=== PATIENT | male | born 1945 | race Caucasian/White ===

== ENCOUNTER 2018-02-24 20:38 | Observation (INO) | payer MEDICARE ==
[2018-02-24] MEDS ORDERED: DiphenhydrAMINE 50 mg/ml Inj ONE (21:31)
--- NOTE | 2018-02-24 21:54 | C.PDOC ---
History Of Present Illness 72 y/o male presents to ED for complaints of lip swelling associated with right cheek swelling that began this afternoon. Denies SOB, throat pain or swelling, trauma, or any other physical complaints. Patient started taking hiwot inhibitor one week ago. Chief Complaint (Nursing): Allergic Reaction History Per: Patient History/Exam Limitations: no limitations Onset/Duration Of Symptoms: Hrs Current Symptoms Are (Timing): Still Present Recent travel outside of the [place]: No Past Medical History Reviewed: Historical Data, Nursing Documentation, Vital Signs Vital Signs: Last Vital Signs Temp 98.9 F 02/24/18 21:08 Pulse 74 02/25/18 00:47 Resp 16 02/25/18 00:47 BP 133/79 02/25/18 00:47 Pulse Ox 98 02/25/18 00:47 - Medical History PMH: Asthma, HTN Surgical History: No Surg Hx Family History: States: No Known Family Hx - Social History Hx Alcohol Use: Yes Hx Substance Use: No - Immunization History Hx Influenza Vaccination: Yes Hx Pneumococcal Vaccination: Yes Review Of Systems Constitutional: Negative for: Fever, Chills, Sweats ENT: Positive for: Other (Lip and right cheek swelling). Negative for: Throat Pain, Throat Swelling Cardiovascular: Negative for: Chest Pain Respiratory: Negative for: Shortness of Breath Gastrointestinal: Negative for: Nausea, Vomiting, Abdominal Pain, Diarrhea Skin: Negative for: Rash Neurological: Negative for: Weakness, Numbness Physical Exam - Physical Exam Appears: Well, Non-toxic, No Acute Distress Skin: Warm, Dry, No Ecchymosis, Other (Right cheek swelling ) Head: Atraumatic, Normacephalic Eye(s): bilateral: Normal Inspection, PERRL, EOMI Nose: Normal, No Discharge Oral Mucosa: Moist Tongue: Normal Appearing, No Swelling Lips: Swelling (Bilateral lips mostly on the right sided area. ) Throat: Normal, No Erythema, No Exudate, No Drooling Neck: Supple Chest: Symmetrical, No Tenderness Cardiovascular: Rhythm Regular, No Murmur Respiratory: Normal Breath Sounds, No Decreased Breath Sounds, No Rales, No Rhonchi, No Wheezing Gastrointestinal/Abdominal: Soft, No Tenderness Extremity: Normal ROM, No Deformity Extremity: Bilateral: Atraumatic, Normal Color And Temperature, Normal ROM Neurological/Psych: Oriented x3 (Awake and alert), Normal Speech (Speeaking in full sentences ), Other (No focal deficits ) Gait: Steady ED Course And Treatment - Laboratory Results Result Diagrams: 02/25/18 00:24 02/25/18 00:24 O2 Sat by Pulse Oximetry: 94 (RA) Pulse Ox Interpretation: Normal Medical Decision Making Medical Decision Making: Administered pepcid, benadryl, and SOLU-Medrol. Re-Evaluation: - Lip swelling noted - No throat swelling - Patient will be under observation Disposition Discussed With : Mela Montague Doctor Will See Patient In The: Hospital Counseled Patient/Family Regarding: Diagnosis - Disposition Disposition: HOSPITALIZED Disposition Time: 00:25 Condition: STABLE Forms: [facility] (Colombian) - POA Present On Arrival: None - Clinical Impression Clinical Impression: Angioedema - Scribe Statement The provider has reviewed the documentation as recorded by the Rafiibwilfredo Masters All medical record entries made by the Scribwilfredo were at my direction and personally dictated by me. I have reviewed the chart and agree that the record accurately reflects my personal performance of the history, physical exam, medical decision making, and the department course for this patient. I have also personally directed, reviewed, and agree with the discharge instructions and disposition.
[2018-02-24] MEDS ORDERED: DiphenhydrAMINE 50 mg/ml Inj IVP STA (21:59)
[2018-02-24] MEDS ORDERED: MethylPREDNISolone 40 mg Vial IVP STA (21:59)
[2018-02-25 00:27] LABS: BASO # 0.1 K/uL (0.0-0.2); BASO % 0.8 % (0.0-2.0); EOS # 0.4 K/uL (0.0-0.7); EOS % 5.2 % (0.0-4.0); HEMOGLOBIN 15.5 g/dL (12.0-18.0); LYMPH % 24.5 % (20.0-40.0); MEAN CELL VOLUME 93.6 fL (80.0-94.0); MEAN CORPUSCULAR HEMOGLOBIN 32.1 pg (27.0-31.0); MEAN CORPUSCULAR HGB CONC 34.3 g/dL (33.0-37.0); MONO # 0.8 K/uL (0.0-0.8); MONO % 9.4 % (0.0-10.0); NEUT % 60.1 % (50.0-75.0); RBC 4.85 Mil/uL (4.40-5.90); RED CELL DISTRIBUTION WIDTH 14.3 % (11.5-14.5); WHITE BLOOD COUNT 8.3 K/uL (4.8-10.8)
[2018-02-25 00:40] LABS: ALB/GLOB RATIO 1.2 (1.0-2.1); ALBUMIN 4.6 g/dL (3.5-5.0); ALT/SGPT 44 U/L (21-72); AST/SGOT 35 U/L (17-59); BLOOD UREA NITROGEN 21 mg/dL (9-20); CALCIUM 9.2 mg/dl (8.6-10.4); GFR AFRICAN-AMERICAN > 60; GFR NON-AFRICAN AMERICAN > 60
[2018-02-25] MEDS ORDERED: Glucagon Recombinant 1 mg Inj ONE (01:54)
[2018-02-25] MEDS ORDERED: MethylPREDNISolone 40 mg Vial IVP STA (03:00)
[2018-02-25] MEDS ORDERED: MethylPREDNISolone 40 mg Vial ONE (03:14)
[2018-02-25] MEDS ORDERED: DiphenhydrAMINE 50 mg/ml Inj ONE (03:22)
[2018-02-25] MEDS ORDERED: DiphenhydrAMINE 50 mg/ml Inj IVP STA (03:28)
[2018-02-25 07:10] LABS: INR 1.3; PROTHROMBIN TIME 14.1 SECONDS (9.7-12.2)
[2018-02-25] MEDS ORDERED: Albuterol-Ipratrop 3 mg / 0.5 (3 ml) UD INH PRN (08:09)
--- NOTE | 2018-02-25 08:12 | CP.PCM.PN ---
Subjective - Date & Time of Evaluation Date of Evaluation: 02/25/18 Time of Evaluation: 07:00 - Subjective Subjective: PGY-2 Medicine Progress Note for Dr. Montague: 72 year old male with past medical history of hypertension and asthma presented to the ER for facial swelling. Patient states he started taking new medication (Lisinopril 20mg daily; Furosemide 40mg daily; Amlodipine 5mg daily; potassium daily) 02/18/18. Patient states he took his medications yesterday at 6am and then around 6:30pm yesterday his right cheek began to swell and within 1 hour the rest of his face and tongue began to swell. Patient denies shortness of breath, difficulty swallowing, chest pain, nausea, vomiting, diarrhea or constipation. Patient states the swelling has significantly improved since he arrived yesterday to the ER. Objective - Vital Signs/Intake and Output Vital Signs (last 24 hours): Temp Pulse Resp BP Pulse Ox 98.7 F 90 20 168/104 H 96 02/25/18 04:14 02/25/18 05:40 02/25/18 05:40 02/25/18 05:40 02/25/18 05:40 - Medications Medications: Current Medications Albuterol/Ipratropium (Duoneb 3 Mg/0.5 Mg (3 Ml) Ud) 3 ml INH RQ6 PRN PRN Reason: Shortness of Breath Amlodipine Besylate (Norvasc) 5 mg PO DAILY [facility] Diphenhydramine HCl (Benadryl) 50 mg PO Q6 [facility] Heparin Sodium (Porcine) (Heparin) 5,000 units SC Q8 [facility] Methylprednisolone (Solu-Medrol) 40 mg IVP Q6 [facility] - Labs Labs: 02/25/18 00:24 02/25/18 00:24 PT 14.1 SECONDS (9.7-12.2) H 02/25/18 06:36 INR 1.3 02/25/18 06:36 APTT 34 SECONDS (21-34) 02/25/18 06:36 - Constitutional Appears: No Acute Distress - Head Exam Additional comments: facial swelling - Eye Exam Eye Exam: EOMI, Normal appearance, PERRL Pupil Exam: NORMAL ACCOMODATION - ENT Exam ENT Exam: Mucous Membranes Moist. absent: Normal Oropharynx (tonsils swollen bilaterally ) - Respiratory Exam Respiratory Exam: Clear to Ausculation Bilateral, NORMAL BREATHING PATTERN - GI/Abdominal Exam GI & Abdominal Exam: Soft, Normal Bowel Sounds. absent: Tenderness - Extremities Exam Extremities Exam: Normal Inspection. absent: Pedal Edema, Tenderness - Neurological Exam Neurological Exam: Alert, Awake, Oriented x3 - Psychiatric Exam Psychiatric exam: Normal Affect, Normal Mood - Skin Skin Exam: Normal Color Assessment and Plan - Assessment and Plan (Free Text) Assessment: 72 year old male with past medical history of hypertension and asthma presented to the ER for facial swelling. Angioedema - In the ER patient was given: total of 100mg of Benadryl; 165mg Solmedrol - Discussed with patient that he is allergic to Lisinopril which caused the angioedema - Medications: * Benadryl 50mg q6h * Solumedrol 40mg IV q6h History of Asthma - Ventolin PRN - Duoneb prn History of HTN - Norvasc 5mg daily Prophylaxis - SCDs - Heparin SC q8h - GI prophylaxis not indicated Case discussed with attending. All medical management as per Dr. Montague.
[2018-02-25] MEDS: MethylPREDNISolone 40 mg Vial IVP SCH ×2 (11:15→17:32)
[2018-02-25] MEDS ORDERED: Albuterol HFA 90 mcg/actuation (8 g) INH PRN (13:12)
[2018-02-26] MEDS: MethylPREDNISolone 40 mg Vial IVP SCH ×4 (00:25→18:23)
[2018-02-27] MEDS: MethylPREDNISolone 40 mg Vial IVP SCH ×3 (05:20→12:23)
--- NOTE | 2018-02-27 07:22 | CP.PCM.PN ---
Subjective - Date & Time of Evaluation Date of Evaluation: 02/27/18 Time of Evaluation: 07:22 - Subjective Subjective: PGY2 Medicine Note for Dr. Montague Patient seen and examined this morning at bedside. No acute events overnight. Patient reports swelling is much improved and he would like to be discharged home today. He reports no difficulty swallowing or difficulty breathing. If he is not discharged he would like to sign out AMA. ROS unremarkable. Objective - Vital Signs/Intake and Output Vital Signs (last 24 hours): Temp Pulse Resp BP Pulse Ox 97.7 F 83 20 132/60 97 02/26/18 23:28 02/26/18 23:28 02/26/18 23:28 02/26/18 23:28 02/27/18 03:30 Intake and Output: 02/27/18 02/27/18 06:59 18:59 Intake Total 330 Balance 330 - Medications Medications: Current Medications Albuterol/Ipratropium (Duoneb 3 Mg/0.5 Mg (3 Ml) Ud) 3 ml INH RQ6 PRN PRN Reason: Shortness of Breath Amlodipine Besylate (Norvasc) 5 mg PO DAILY [facility] Last Admin: 02/26/18 10:40 Dose: 5 mg Diphenhydramine HCl (Benadryl) 50 mg PO Q6 [facility] Last Admin: 02/27/18 05:20 Dose: 50 mg Heparin Sodium (Porcine) (Heparin) 5,000 units SC Q8 [facility] Last Admin: 02/27/18 05:20 Dose: 5,000 units Methylprednisolone (Solu-Medrol) 40 mg IVP Q6 [facility] Last Admin: 02/27/18 05:20 Dose: 40 mg Pneumococcal Polyvalent Vaccine (Pneumovax 23 Vaccine) 0.5 ml IM .ONCE ONE Stop: 02/27/18 10:01 - Labs Labs: 02/25/18 00:24 02/25/18 00:24 PT 14.1 SECONDS (9.7-12.2) H 02/25/18 06:36 INR 1.3 02/25/18 06:36 APTT 34 SECONDS (21-34) 02/25/18 06:36 - Constitutional Appears: Non-toxic, No Acute Distress - Head Exam Additional comments: facial swelling resolved (per patient) - lips appear mildly swollen - Eye Exam Eye Exam: EOMI, Normal appearance - ENT Exam ENT Exam: Mucous Membranes Moist - Neck Exam Neck Exam: absent: Lymphadenopathy - Respiratory Exam Respiratory Exam: Clear to Ausculation Bilateral, NORMAL BREATHING PATTERN. absent: Accessory Muscle Use, Rales, Rhonchi, Wheezes, Respiratory Distress - Cardiovascular Exam Cardiovascular Exam: REGULAR RHYTHM, +S1, +S2 - GI/Abdominal Exam GI & Abdominal Exam: Soft. absent: Distended, Firm, Guarding, Rigid, Tenderness - Extremities Exam Extremities Exam: absent: Calf Tenderness, Pedal Edema - Neurological Exam Neurological Exam: Alert, Awake, CN II-XII Intact, Oriented x3 - Psychiatric Exam Psychiatric exam: Normal Affect, Normal Mood - Skin Skin Exam: Dry, Warm Assessment and Plan - Assessment and Plan (Free Text) Plan: Angioedema - In the ER patient was given: total of 100mg of Benadryl; 165mg Solmedrol - Discussed with patient that he is allergic to Lisinopril which caused the angioedema - Medications: * Benadryl 50mg q6h * Solumedrol 40mg IV q6h History of Asthma - Ventolin PRN - Duoneb prn History of HTN - Norvasc 5mg daily Prophylaxis - SCDs - Heparin SC q8h - GI prophylaxis not indicated DISPO: Patient did not want to wait any longer. There was a discussion about a possible EGD with Dr. Barbosa but patient decided to leave AMA. Risks including to but not limitied to return of swelling, difficulty breathing, respiratory failure and were explained to the patient. He stated he understand and would still like to leave. He was told to return to the emergency room if he experiences any increase in swelling, SOB or difficulty swallowing. Case discussed with and all medical management as per Dr. Montague. Vito Mckeonn PGY2
[2018-02-27 09:44] VITALS: BP 150/83; PULSE 74; RESP 22; TEMP 98.2; O2SAT 95
[2018-02-27] MEDS ORDERED: Pneumococcal 23-Valent Vaccine IM ONE (10:00)
== END 2018-02-27 15:13 | disposition left against medical advice (07) ==
LOC: C.ER 20:38 → C.9E 02-25 00:29 → C.3T 02-25 06:45
PROVIDERS: ADMIT Internal Medicine Pulmonary Disease; ATTEND Internal Medicine Pulmonary Disease
DX: T78.3XXA Angioneurotic edema, initial encounter (principal); J45.909 Unspecified asthma, uncomplicated; I10 Essential (primary) hypertension
CPT/HCPCS: 80053; 85025; 85610; 85730; 86850; 86900; 90471; 90732; 96374; 99285; G0378; J1200; J1644; J2920